=== PATIENT | female | born 2000 | race Caucasian/White ===

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

== ENCOUNTER 2022-04-02 18:29 | Emergency (ER) | payer BC ==
[2022-04-02 19:32] VITALS: BP 127/74; PULSE 61
[2022-04-02] MEDS ORDERED: Ibuprofen 400 MG Tab PO ONE (21:12)
[2022-04-02] MEDS ORDERED: Acetaminophen 325 MG Tab PO ONE (21:12)
[2022-04-02] MEDS ORDERED: Cefdinir 300 MG Cap PO ONE (21:14)
== END 2022-04-02 22:04 | disposition home or self-care (01) ==
LOC: MW.ED 18:29
DX: H66.92 Otitis media, unspecified, left ear (principal); Z88.1 Allergy status to other antibiotic agents; Z88.8 Allergy status to other drugs, medicaments and biological substances; Z79.899 Other long term (current) drug therapy
CPT/HCPCS: 99282; A9270